=== PATIENT | male | born 1955 | race Caucasian/White ===

== ENCOUNTER 2018-11-27 16:09 | Inpatient (IN) | payer MEDICARE, MEDICAID ==
[2018-11-27] MEDS ORDERED: Haloperidol Lactate 5 mg/mL 1mL Vial IM STA (16:26)
[2018-11-27] MEDS ORDERED: Haloperidol Lactate 5 mg/mL 1mL Vial ONE (16:36)
--- NOTE | 2018-11-27 16:44 | ED Physician Chart ---
ED Chief Complaint/HPI - Patient Information Date Seen:: 11/27/18 Time Seen:: 16:38 Chief Complaint:: agitation History of Present Illness:: this is a 63 yo male senior care patient bib his brother for evaluation and treatment. he has been in the senior care for 10 yrs and had a previous episode of psychosis that he was treated for in the past. Allergies:: Allergies Allergy/AdvReac Type Severity Reaction Status Date / Time No Known Allergies Allergy Verified 11/27/18 16:20 Vitals:: Vital Signs - 8 hr 11/27/18 16:26 Temp 98.5 F HR 88 RR 18 BP 195/99 O2 Sat % 97 Historian:: Family Member (brother) Review:: Nurse's Note Reviewed ED Review of Systems - Review of Systems General/Constitutional: No fever, No chills, No weight loss, No weakness, No diaphoresis, No edema, No loss of appetite, Other (this patient is unable to give a review of systems) Skin: No skin lesions, No rash, No bruising Head: No headache, No light-headedness Eyes: No loss of vision, No pain, No diplopia ENT: No earache, No nasal drainage, No sore throat, No tinnitus Neck: No neck pain, No swelling, No thyromegaly, No stiffness, No mass noted Cardio Vascular: No chest pain, No palpitations, No PND, No orthopnea, No edema Pulmonary: No SOB, No cough, No sputum, No wheezing GI: No nausea, No vomiting, No diarrhea, No pain, No melena, No hematochezia, No constipation, No hematemesis G/U: No dysuria, No frequency, No hematuria Musculoskeletal: No bone or joint pain, No back pain, No muscle pain Endocrine: No polyuria, No polydipsia Psychiatric: No prior psych history, No depression, No anxiety, No suicidal ideation Hematopoietic: No bruising, No lymphadenopathy Allergic/Immuno: No urticaria, No angioedema Neurological: No syncope, No focal symptoms, No weakness, No paresthesia, No headache, No seizure, No dizziness, No confusion, No vertigo ED Past Medical History - Past Medical History Obtainable: Yes Past Medical History: HTN, Dyslipidemia, Dementia Family History: None Social History: Smoker, No Alcohol, No Drug Use, Care Facility Surgical History: None Psychiatricy History: Dementia Medication: Reviewed ED Physical Exam - Physical Examination General/Constitutional: Awake, Well-developed, well-nourished, Alert, No distress, GCS 15, Non-toxic appearing, Ambulatory Other Gen/Cons comments:: the patient is uncooperative and combative. Head: Atraumatic Eyes: Lids, conjuctiva normal, PERRL, EOMI Skin: Nl inspection, No rash, No skin lesions, No ecchymosis, Well hydrated, No lymphadenopathy ENMT: External ears, nose nl, Nasal exam nl, Lips, teeth, gums nl Neck: Nontender, Full ROM w/o pain, No JVD, No nuchal rigidity, No bruit, No mass, No stridor Respiratory: Nl effort/Exclusion, Clear to Auscultation, No Wheeze/Rhonchi/Rales Cardio Vascular: RRR, No murmur, gallop, rubs, NL S1 S2 GI: No tenderness/rebounding/guarding, No organomegaly, No hernia, Normal BS's, Nondistended, No mass/bruits, No McBurney tenderness : No CVA tenderness Extremities: No tenderness or effusion, Full ROM, normal strength in all extremities, No edema, Normal digits & nails Neuro/Psych: Alert/oriented, DTR's symmetric, Normal sensory exam, Normal motor strength, Judgement/insight normal, Mood normal, Normal gait, No focal deficits Misc: Normal back, No paraspinal tenderness ED Labs/Radiology/EKG Results - Radiology Results Results: chest x-ray = nad ct scan of the head = nad ED Assessment - Assessment General Assessment: psychosis ED Septic Shock - . Is Septic Shock (SBP<90, OR Lactate>4 mmol\L) present?: No - <6hrs of presentation: Vital Signs: Vital Signs - 8 hr 11/27/18 16:26 Temp 98.5 F HR 88 RR 18 BP 195/99 O2 Sat % 97 ED Reassessment (Disposition) - Diagnosis Diagnosis:: psychosis - Patient Disposition Discharge/Transfer:: Acute Care w/in this hosp Admitting Medical Physician:: Ben Rowe Admitting Psych Physician:: Trina Mercado Condition at Disposition:: Unchanged
[2018-11-27 18:24] LABS: % BASOPHILS 0.1 % (0.0-2.0); % EOSINOPHILS 0.3 % (0.0-5.0); % LYMPHOCYTES 8.2 % (20.0-50.0); % MONOCYTES 3.6 % (2.0-10.0); % NEUTROPHILS 87.8 % (40.0-80.0); HEMATOCRIT 45.5 % (41.0-60); HEMOGLOBIN 15.2 gm/dL (12-16); LYMPHOCYTE ABSOLUTE 0.7 Th/cmm (1.5-3.0); MEAN CELL VOLUME 87.5 fl (80-99); MEAN CORPUSCULAR HEMOGLOBIN 29.3 pg (26.0-30.0); MEAN CORPUSCULAR HGB CONC 33.5 pg (28.0-36.0); MEAN PLATELET VOLUME 9.2 fl; MONOCYTE ABSOLUTE 0.3 Th/cmm (0.3-1.0); NEUTROPHILE ABSOLUTE 7.8 Th/cmm (1.8-8.0); PLATELET COUNT 228 Th/cmm (150-400); WHITE BLOOD COUNT 8.8 Th/cmm (4.8-10.8)
[2018-11-27 18:34] LABS: INR 0.94 (0.5-1.4); PROTHROMBIN TIME (TEST) 9.8 SECONDS (9.5-11.5)
[2018-11-27 18:35] LABS: ALB/GLOB RATIO 1.6 (1.0-1.8); ALBUMIN 4.2 gm/dL (4.2-5.5); ALKALINE PHOSPHATASE 63 U/L (34-104); BILIRUBIN,TOTAL 1.3 mg/dL (0.3-1.0); BUN - UREA NITROGEN 15 mg/dL (7-25); CARBON DIOXIDE 27.4 mEq/L (21.0-31.0); CHLORIDE 104 mEq/L (98-107); CREATININE - SERUM 0.9 mg/dL (0.7-1.3); GFR AFRICAN-AMERICAN > 60.0 ml/min (>90); GFR NON AFRICAN-AMERICAN > 60.0 ml/min; GLUCOSE 157 mg/dL (70-105); POTASSIUM SERUM 3.4 mEq/L (3.5-5.1); SGOT 17 U/L (13-39); SGPT/ALT 10 U/L (7-52); SODIUM SERUM 141 mEq/L (136-145); TOTAL PROTEIN,SERUM 6.8 gm/dL (6.0-8.3)
[2018-11-27] MEDS ORDERED: Magnesium Hydroxide (MOM) 30 mL UDC PO PRN (21:28)
[2018-11-27] MEDS ORDERED: Maalox 30 mL Cup PO PRN (21:28)
[2018-11-27 21:52] LABS: CHOLESTEROL 159 mg/dL (<200); HDL -HIGH DENSITY LIPOPROTEIN 50 mg/dL (23-92); TRIGLYCERIDES 53 mg/dL (<150)
[2018-11-28 02:37] VITALS: BP 138/74
--- NOTE | 2018-11-28 09:27 | Diagnostic Imaging Report ---
CHEST X-RAY: AP view INDICATION: pain COMPARISON: None FINDINGS: Left basal subsegmental atelectasis versus scarring is noted. There is no focal consolidation or pleural effusions The heart is normal in size. Degenerative changes of the spine are noted. IMPRESSION: Left basal subsegmental atelectasis versus scarring. No focal consolidation is identified..
--- NOTE | 2018-11-28 09:36 | Diagnostic Imaging Report ---
Head CT without intravenous contrast Indication: Confusion Comparison: None Technique: Axial images were obtained from the vertex to the skull base without IV contrast. Coronal reconstructions were made. Total DLP: 789 , [id number] FINDINGS: Images of the brain obtained without contrast demonstrate no acute hemorrhage. No mass lesions identified. The ventricles and basal cisterns are patent. The peraza-white matter differentiation is preserved. There is no mass effect or midline shift. Without calcification is noted. Atherosclerosis is noted. No skull fractures identified. No soft tissue swelling. There is mucosal thickening in the paranasal sinuses. IMPRESSION: No acute intracranial abnormality. Atherosclerotic vascular disease.
[2018-11-28] MEDS: Multivitamin Tab PO SCH (10:02)
--- NOTE | 2018-11-28 15:19 | History & Physical ---
ADMIT DATE: 11/28/2018 PATIENT'S ID: A 63-year-old male. Requesting physician for the H and P is Dr. Mercado. CHIEF COMPLAINT: Unable to obtain from the patient. HISTORY SOURCE: Reviewing the chart, talking to the staff at [facility]. HISTORY OF PRESENT ILLNESS: A 63-year-old resident of assisted living facility in [facility], brought into the Emergency Room at [facility] for evaluation of increasing agitation. The patient was evaluated in the ER and subsequently advised to be admitted at [facility]. The patient was admitted by Dr. Mercado and I am evaluating this patient this morning. I am unable to get meaningful history from the patient due to his underlying illness. PAST MEDICAL HISTORY: Remarkable for: 1. Hypertension. 2. Hyperlipidemia. 3. DJD. 4. Psychotic disorder. 5. History of dementia. MEDICATIONS: The patient is receiving, which include: 1. Lisinopril. 2. Amlodipine. 3. Aspirin. 4. Lorazepam. 5. Paliperidone. 6. Simvastatin. 7. Haldol. ALLERGIES: The patient is not allergic to medications. SOCIAL HISTORY: He lives in assisted living facility. The patient has a history of smoking cigarette, but no alcohol or drug use. FAMILY MEDICAL HISTORY: Remarkable for hypertension and stroke. REVIEW OF SYSTEMS: The patient's history is pretty unreliable due to the patient's current condition. PHYSICAL EXAMINATION: GENERAL: The patient is alert, awake, lying in the bed, ambulatory. VITAL SIGNS: Temperature 98.5, pulse is 88, respiratory rate 18, blood pressure 195/99. HEENT: Normocephalic, atraumatic. Extraocular muscles are intact. Tongue was pink and coated. Poor dentition noted. No oral lesion, no exudate. No sinus tenderness. NECK: Supple, no JVD, no hepatojugular reflex. No lymphadenopathy, thyromegaly, or carotid bruit. HEART: Both heart sounds are regular. No S3, no S4, no murmur. CHEST AND LUNGS: Equal in expansion, no expiratory wheezing. ABDOMEN: Soft. No guarding, no rigidity. Liver and spleen are not palpable. No palpable belia. EXTREMITIES: No edema, no cyanosis. Peripheral pulses +1. No calf tenderness noted. NEUROLOGIC: Alert and awake, follows simple 1-step command, moving upper and lower extremity without any difficulty. Some degree of spasticity noted. AVAILABLE DIAGNOSTIC DATA: Chest x-ray performed in the Emergency Room, which remarkable for cardiomegaly, but no infiltrate, no congestion. CT scan of the head was done, which was unremarkable for any bleed. The patient's white count of 8.8, hemoglobin of 15.2, platelet count 228. Sodium 141, potassium 3.4, chloride 104, CO2 27.4, BUN and creatinine are 15 and 0.9, glucose of 157. Total bilirubin is 1.3. TSH is 1.5. Cholesterol profile within normal limit. EKG unremarkable for any acute ischemia or arrhythmias. CLINICAL IMPRESSIONS: 1. Hypertension. 2. Hyperlipidemia. 3. Degenerative joint disease. 4. Psychotic disorder. 5. Dementia. 6. High risk for fall. PLAN: 1. Psychotic evaluation and management deferred to psychiatrist. 2. Resume antihypertensive medication. 3. Monitor blood pressure. 4. Resume statin. 5. Fall precautions. 6. General nursing care. 7. Nutritional support. 8. Symptoms management. 9. Medication management. 10. We will continue to follow this patient during the stay in the hospital. JOB# [id number]
[2018-11-28] MEDS ORDERED: PALIPERIDONE 9 MG PO SCH (21:00)
--- NOTE | 2018-11-29 02:53 | Psychiatric Evaluation ---
DATE OF SERVICE: 11/27/2018 IDENTIFYING DATA: The patient is a 63-year-old male living with his family. Information obtained by directly interviewing the patient as well as reviewing the admission paper. JUSTIFICATION OF HOSPITALIZATION: The patient is admitted here for acute psychosis. The patient is conserved. The patient is reported to have been noncompliant to the medication almost for a month and half and the patient is not making much sense at this time. Sleep and appetite at the time of the hospitalization are reported to be very poor. The patient is very disheveled and not making much sense. The patient's brother is worried about the patient not compliant with the medication and wants the patient to be hospitalized for stabilization. PAST PSYCHIATRIC HISTORY: The patient had been hospitalized on multiple occasions. MEDICAL HISTORY: Physical examination is requested to be done by Dr. Rowe. SUBSTANCE ABUSE HISTORY: None. PHYSICAL OR SEXUAL ABUSE HISTORY: None. LEGAL PROBLEMS: None at this time. STRENGTH AND ASSETS: The patient is motivated. MENTAL STATUS EXAMINATION: The patient is a 63-year-old, looking his stated age, disheveled, superficially cooperative. Eye contact is poor. Mood is noted to be irritable. Affect is constricted. The patient is pacing on the unit. The patient has paranoid delusions, but denies any command hallucinations. The patient is not able to contract for safety. No side effects to the medications are noted at this time. The patient has been pacing on the unit. The patient is alert and awake. Attention span and concentration are noted to be poor at this time. ASSESSMENT: Schizophrenia. DIAGNOSTIC ASSESSMENT: AXIS I: Schizophrenia, chronic paranoid type. AXIS II: None. AXIS III: As per Dr. Rowe. IMMEDIATE TREATMENT PLAN: The patient is going to be restarted on the Haldol and if the patient is able to tolerate, he is going to be given the Haldol Decanoate. JOB# [id number]
[2018-11-29] MEDS: Multivitamin Tab PO SCH (09:02)
--- NOTE | 2018-11-29 22:57 | Consultation ---
DATE OF CONSULTATION: 11/29/2018 REFERRING PHYSICIAN: Trina Mercado M.D. TYPE OF CONSULTATION: Psychology. HISTORY OF PRESENT ILLNESS: The patient is a 63-year-old male. The following is by review of the medical record and by patient's self-report. According to record, the patient lives with his family and is being admitted here due to acute psychosis. The patient is conserved. The record indicates the patient has been noncompliant with his medication for approximately 6 weeks. The patient is not making much sense at the time of this clinical interview. The patient's brother is involved with his care. The patient denied any suicidal ideation, plan, or intention at the time of this clinical interview. PAST MEDICAL HISTORY: Please see history and physical by Dr. Rowe. PAST PSYCHIATRIC HISTORY: The patient has multiple previous hospitalizations according to the review of the record. It is unknown whether the patient is under the care of a psychiatrist or a psychologist. SUBSTANCE ABUSE HISTORY: The patient did not answer these questions. PSYCHOSOCIAL HISTORY: The patient lives with his family. The patient did not answer questions about occupational or educational history or sabianist affiliation. The patient denied any history of physical or sexual abuse. He denies any current legal problems. The patient expects to return to his previous placement, which according to the record is living with his family. This will be reviewed by the telephonic nurse case manager and the attending psychiatrist. MENTAL STATUS EXAMINATION: The patient appears to be his stated age. The patient's attitude is superficially cooperative. The patient looks disheveled. Eye contact is poor. Speech is rambling. Mood is irritable. Affect is constricted. The patient is pacing on the unit. The patient denied any suicidal ideation, plan, or intention. The patient denies any auditory or visual hallucinations; however , the patient is verbalizing paranoid delusions and is unable to contract for safety. Impulse control is poor. Concentration is poor. The patient did not participate in the memory assessment. The patient did not participate in the interpretation of proverbs. Sensorium is alert and oriented to self only. Insight is impaired. Judgment is impaired. DIAGNOSTIC IMPRESSION: AXIS I: Schizophrenia, chronic, paranoid type. AXIS II: Deferred. AXIS III: Per Dr. Mckee. PLAN: The patient has been seen by Dr. Mercado for psychiatric evaluation and for the management of the patient's psychotropic medications. The attending psychiatrist reports that the patient is restarted on Haldol Decanoate. We will provide supportive psychotherapy to include reality orientation, differentiation, and integration. We will provide motivational enhancement for the patient to become compliant and to stay compliant with all aspects of his care and treatment. We will provide coping strategies for phase of life issues as well as for chronic severe mental illness. We will encourage the patient to be able to demonstrate emotional and self-regulation prior to his discharge. We will encourage the patient to verbally contract for safety. The telephonic nurse case manager is involved in the patient's possible placement versus returning home to his family. This will be discussed with the attending psychiatrist. Thank you, Dr. Mercado, for this consult and the opportunity to participate in this patient's care. JOB# [id number] MTDKim
--- NOTE | 2018-11-30 03:08 | Progress Notes ---
DATE: 11/29/2018 PSYCHIATRIC PROGRESS NOTE SUBJECTIVE: Staff was spoken to. The patient is interviewed. Mood is noted to be irritable. Affect is constricted. Coping skills are noted to be very poor. The patient is going on a tangent. The patient continues to be very paranoid. Insight and judgment are noted to be very much impaired. The patient is pacing most of the time on the unit. ASSESSMENT: The patient is still grossly psychotic. PLAN: To continue the patient with supportive therapy. I encouraged the patient to verbalize the concerns rather than to act out. JOB# [id number]
--- NOTE | 2018-11-30 04:47 | Progress Notes ---
DATE: IDENTIFICATION: A 63-year-old male. SUBJECTIVE: The patient seen and examined. The patient is lying in the bed. The patient was able to participate in the activity. The patient also had a shower this morning as well. PHYSICAL EXAMINATION: VITAL SIGNS: On today's exam, temperature 98.6, pulse 73, respiratory rate 18, blood pressure 134/92. HEENT: No facial asymmetry. NECK: Supple, no JVD. HEART: Regular. CHEST AND LUNGS: Equal in expansion, no expiratory wheezing. ABDOMEN: Soft. EXTREMITIES: No edema. CLINICAL IMPRESSION: 1. Hypertension. 2. Psychotic disorder exacerbation. 3. Hyperlipidemia. 4. Degenerative joint disease. 5. Psychotic disorder 6. Dementia. PLAN: 1. Monitor blood pressure. 2. Antihypertensive medicine. 3. Statin. 4. Psych followup. 5. General nursing care. 6. Nutritional support. 7. Follow lab. 8. Care plan reviewed. JOB# [id number]
[2018-11-30] MEDS: Multivitamin Tab PO SCH (08:25)
--- NOTE | 2018-12-01 04:01 | Progress Notes ---
DATE: 11/30/2018 PSYCHIATRIC PROGRESS NOTE SUBJECTIVE: Staff was spoken to. The patient is interviewed. Mood is noted to be less irritable. Affect is appropriate. The patient has been, however, pacing most of the time on the unit and is actively responding to internal stimuli. The patient is currently on Haldol. Plan is to contact the conservator and if the conservator is okay, the patient is going to be given the Haldol Decanoate. ASSESSMENT: The patient is still psychotic. PLAN: To continue the patient with the supportive therapy and followup. JOB# [id number]
[2018-12-01] MEDS: Multivitamin Tab PO SCH (08:51)
--- NOTE | 2018-12-01 15:27 | Progress Notes ---
DATE: 11/30/2018 IDENTIFICATION: A 63-year-old male patient seen and examined. The patient is lying in the bed. No new event. PHYSICAL EXAMINATION: VITAL SIGNS: See nurse's note. HEENT: Poor dentition. NECK: Supple, no JVD. HEART: Regular. CHEST: Lung equal in expansion, no expiratory wheezing. ABDOMEN: Soft. EXTREMITIES: No edema. NEUROLOGIC: Limited, but nonfocal. CLINICAL IMPRESSION: 1. Hypertension. 2. Psychotic disorder. 3. Degenerative joint disease. 4. Hyperlipidemia. 5. High risk for fall. 6. Dementia. PLAN: 1. Low sodium diet. 2. Statins. 3. Antihypertensive medicine. 4. Psych medication. 5. Psych followup. 6. General nursing care. 7. Nutritional support. 8. Follow lab. 9. Follow consult recommendation. 10. Care plan reviewed and discussed with staff. JOB# [id number]
--- NOTE | 2018-12-02 02:32 | Progress Notes ---
DATE: 12/01/2018 SUBJECTIVE: Staff was spoken to. The patient is interviewed. Mood is noted to be irritable. Affect is constricted. The patient has been mumbling to self. The patient is not able to contract for safety. There is no Invega available in the hospital, hence the patient is immediately placed on the previous medications that is Risperdal 2 mg twice a day. The patient's insight and judgment are noted to be still impaired. Impulse control is noted to be limited. ASSESSMENT: The patient is still psychotic and impulsive. PLAN: To continue the patient with the supportive therapy and followup. JOB# [id number]
--- NOTE | 2018-12-02 06:12 | Progress Notes ---
DATE: 12/01/2018 PSYCHOLOGY PROGRESS NOTE SUBJECTIVE: The patient is seen and interviewed. Case is discussed with staff. The patient presents as less irritable, but somewhat withdrawn. Affect is mood congruent. The staff indicates the patient has been pacing on and off during the day on the unit. It appears the patient continues to respond to internal stimuli. The patient is mumbling to himself most of the time, but is able to respond yes or no to the clinical questions. OBJECTIVE: Mood is less irritable. Affect is appropriate. Thought process shows to be confused and responding to inner dialogue persists. The patient denied any suicidal ideation, plan or intention. The patient's behavior is difficult at times to redirect. ASSESSMENT: The patient remains to be psychotic. We will continue to provide reality orientation, differentiation and integration to assist the patient to focus on reality based thoughts versus delusional thought, i.e., internal stimuli. PLAN: We will continue to provide re-motivation for the patient to stay compliant with all aspects of his care and treatment. We will provide coping strategies for chronic severe mental illness. We will follow up in 2-3 days to continue the present treatment if the patient remains on the unit. [facility]# [id number] CORBY
[2018-12-02] MEDS: Multivitamin Tab PO SCH (09:32)
--- NOTE | 2018-12-03 02:23 | Progress Notes ---
DATE: 12/02/2018 SUBJECTIVE: Staff was spoken to. The patient is interviewed. Mood is noted to be irritable. Affect is constricted. The patient is pacing most of the time. Insight and judgment at this time are noted to be very much impaired. Impulse control is noted to be limited. The patient has been making no sense at this time. The patient is currently on haloperidol, has been getting 5 mg twice a day and in view of the patient's poor compliance with the medication, it is decided to start the patient on Haldol Decanoate, which is going to be given at 50 mg and the patient is going to be closely monitored with this medication and followed up with the supportive therapy. The patient at this time is not able to contract for safety and the patient is going to be given the Haldol Decanoate 50 mg tomorrow and the conservator is going to be contacted and once the conservator gives the permission, the patient is going to be continued with this medication. JOB# [id number]
--- NOTE | 2018-12-03 04:09 | Progress Notes ---
DATE: 12/02/2018 PATIENT'S ID: A 63-year-old male. SUBJECTIVE: The patient was seen and examined. The patient is lying in the bed, unable to get meaningful history today from the patient. Discussed with nursing staff about their concerns and treatment plan. PHYSICAL EXAMINATION: VITAL SIGNS: Temperature 98, pulse is 76, respiratory rate 18. HEENT: No facial asymmetry. Poor dentition noted. No oral lesion noted. No exudate. NECK: Supple. No JVD. No lymphadenopathy, thyromegaly. HEART: Both heart sounds are regular. CHEST AND LUNGS: Equal in expansion with no expiratory wheezing. ABDOMEN: Soft. No guarding, no rigidity. Bowel sounds present. No palpable mass. EXTREMITIES: No edema. Medication admission record is reviewed. CLINICAL IMPRESSION: 1. Hypertension. 2. Psychotic disorder. 3. Degenerative joint disease. 4. Dementia. 5. Hyperlipidemia. 6. High risk for fall. PLAN: 1. Low sodium diet. 2. Psych medication. 3. Psych followup. 4. Statin. 5. Fall precaution. 6. General nursing care. 7. Nutritional support. 8. Symptoms management. 9. Care plan reviewed and discussed with staff. JOB# [id number]
[2018-12-03] MEDS: Multivitamin Tab PO SCH (09:06)
[2018-12-04] MEDS: Multivitamin Tab PO SCH (08:23)
--- NOTE | 2018-12-04 09:45 | Progress Notes ---
DATE: 12/03/2018 SUBJECTIVE: Staff was spoken to. The patient is interviewed. Mood is noted to be irritable. Affect is constricted. Insight and judgment noted to be still impaired. Impulse control is noted to be limited. The patient has been not making much sense. Coping skills are noted to be extremely poor at this time. The patient is pacing most of the time. The patient is pacing on the unit. The patient continues to be mumbling to self and not making much sense. In view of the impulsivity, I have decided to start the patient on low dose of Depakote, which is going to be given at 250 mg twice a day and the patient is going to be followed up with supportive therapy. ASSESSMENT: The patient is still psychotic and impulsive, and has been making nonsensical statements and trying to run towards the exit doors. In view of the impulsivity, the above changes have been made. PLAN: The patient is going to be followed up with the supportive therapy. The patient's Risperdal is going to be discontinued. JOB# [id number]
--- NOTE | 2018-12-04 14:22 | Progress Notes ---
DATE: 12/04/2018 SUBJECTIVE: Staff was spoken to. The patient is interviewed. Mood is noted to be irritable. Affect is constricted. The patient has been pacing on the unit. Insight and judgment at this time are noted to be still impaired. Impulse control is noted to be limited. Coping skills are noted to be limited. The patient has been responding to internal stimuli. The patient is currently on Haldol and has been able to tolerate the medication. PLAN: To continue the patient with the supportive therapy, encouraged the patient to verbalize the concerns rather than to act out. JOB# [id number]
[2018-12-05] MEDS: Multivitamin Tab PO SCH (09:08)
--- NOTE | 2018-12-05 23:12 | Progress Notes ---
DATE: 12/05/2018 SUBJECTIVE: Staff was spoken to. The patient is interviewed. Mood is noted to be irritable. Affect is constricted. Coping skills are noted to be still poor. The patient has paranoid delusions and pacing most of the time on the unit. No side effects to the medications are noted at this time. ASSESSMENT: The patient is still impulsive. PLAN: To continue the patient with the supportive therapy. I encouraged the patient to verbalize the concerns rather than to act out. JOB# [id number]
[2018-12-06] MEDS: Multivitamin Tab PO SCH (08:55)
--- NOTE | 2018-12-06 21:05 | Progress Notes ---
DATE: 12/06/2018 PSYCHOLOGY PROGRESS NOTE SUBJECTIVE: The patient is seen and interviewed. Case is discussed with staff. The patient presents as irritable. The patient is still having difficulty following through with staff direction as well as compliance with his care. The patient is verbalizing paranoid delusions. Staff reports the patient continues to pace most of the time on the unit. OBJECTIVE: Mood is irritable. Affect is constricted. Thought process shows to be confused as well as having perseveration towards his medical condition and the staff. The patient continues to be restless. ASSESSMENT AND PLAN: The patient continues to be impulsive. The patient continues to have poor reality testing. We provided supportive psychotherapy which included reality orientation, differentiation, and integration. We provided remotivation for the patient to become compliant and stay compliant with all aspects of his care and treatment as well as to encourage the patient to follow through with staff direction. We provided limit setting and de-escalation. We provided coping strategies for phase of life issues as well as for chronic severe mental illness. We encouraged the patient to demonstrate emotional and self-regulation and verbalize his concerns versus acting out. We will continue to follow up in 2-3 days to continue present treatment. JOB# [id number] [facility]
--- NOTE | 2018-12-06 22:44 | Progress Notes ---
DATE: 12/06/2018 SUBJECTIVE: The patient is seen and examined. The patient was lying in the bed. The patient denies any complaint. Discussed with nursing staff about their concern as well as the treatment plan. PHYSICAL EXAMINATION: VITAL SIGNS: Temperature is 97.6, pulse is 64, respiratory rate is 18, blood pressure is 136/70. HEENT: Poor dentition. No facial asymmetry. NECK: Supple. No JVD. No lymphadenopathy or thyromegaly. HEART: Regular. CHEST: Lung equal in expansion, no expiratory wheezing. ABDOMEN: Soft. No guarding, no rigidity. Bowel sounds are present. No palpable mass. EXTREMITIES: No edema, no cyanosis. Medication admission records were reviewed. CLINICAL IMPRESSION: 1. Psychotic disorder exacerbation. 2. Hypertension. 3. Hyperlipidemia. 4. Dementia, most likely Alzheimer's type. 5. Degenerative joint disease. 6. High risk for fall. 7. Needs for ADL. PLAN: 1. Low sodium diet. 2. Psych medication. 3. Psych followup. 4. Statins. 5. General nursing care. 6. Nutritional support. 7. Fall precaution. 8. Medication management. 9. Symptoms management. 10. General nursing care. 11. Care plan reviewed and discussed with staff. JOB# [id number]
--- NOTE | 2018-12-07 00:31 | Progress Notes ---
DATE: 12/06/2018 SUBJECTIVE: Staff was spoken to. The patient is interviewed. Mood is noted to be irritable. Affect is constricted. The patient is going on a tangent. Insight and judgment are noted to be still impaired. Impulse control is noted to be limited. No side effects to the medications are noted. The patient is able to tolerate the medication so far. ASSESSMENT: The patient is still responding to internal stimuli. PLAN: To continue the patient with the current medications and follow. JOB# [id number]
[2018-12-07] MEDS: Multivitamin Tab PO SCH (09:19)
--- NOTE | 2018-12-08 03:28 | Progress Notes ---
DATE: 12/07/2018 SUBJECTIVE: Staff was spoken to. The patient is interviewed. Mood is noted to be irritable. Affect is constricted. Insight and judgment noted to be improving. Impulse control seems to be fair. The patient could be redirectable. The patient, however, has been responding to internal stimuli. No side effects to the medications are noted. The patient's brother has been spoken to in detail. ASSESSMENT AND PLAN: The patient is scheduled to have an interview for the placement and if the placement is available, possibly the patient is going to be discharged tomorrow. JOB# [id number]
[2018-12-08] MEDS: Multivitamin Tab PO SCH (10:00)
--- NOTE | 2018-12-08 13:31 | Progress Notes ---
DATE: 12/08/2018 SUBJECTIVE: Staff was spoken to. The patient is interviewed. Mood is noted to be irritable. Affect is constricted. The patient's insight and judgment are noted to be improving. Impulse control seems to be fair. The patient has paranoia, but denies any current hallucinations today. No major behavioral problems are noted. The patient could be redirected. ASSESSMENT: The patient's psychosis is resolving. The patient is going to be discharged today once the placement is in place. JOB# [id number]
--- NOTE | 2018-12-10 00:11 | Progress Notes ---
DATE: 12/08/2018 PSYCHOLOGY PROGRESS NOTE SUBJECTIVE: The patient is seen and interviewed. Case has been discussed with staff. The patient's mood is mildly irritable. The patient presents as confused. However, the patient's impulse control seems to be improving. The staff indicates the patient has become compliant with staff direction as well as with his care and treatment. No major behavioral problems are noted. OBJECTIVE: Mood is mildly irritable. Affect is constricted. Thought process is confused with loose associations. The patient denied any auditory or visual hallucinations. The patient denies any suicidal ideation, plan, or intention. The patient's impulse control is improving and is more redirectable. ASSESSMENT AND PLAN: It should be noted that the patient's psychosis is resolving towards baseline. The patient may be discharging today. Therefore, there is no indication for followup visits. We provided coping strategies for chronic severe mental illness. We provided positive reinforcement and remotivation for the patient to stay compliant with all aspects of his care and treatment and to follow through with staff direction at his placement. We also provided coping strategies for phase of life issues. Thank you, Dr. Mercado, for this consult and the opportunity to participate in this patient's care. JOB# [id number] [facility]
== END 2018-12-08 16:30 | DRG 885 ==
LOC: ER 16:09 → GERO 18:00
PROVIDERS: ADMIT Psychiatry & Neurology Psychiatry; ATTEND Psychiatry & Neurology Psychiatry
DX: F20.0 Paranoid schizophrenia (principal); I10 Essential (primary) hypertension; E78.5 Hyperlipidemia, unspecified; M19.90 Unspecified osteoarthritis, unspecified site; F03.90 Unspecified dementia, unspecified severity, without behavioral disturbance, psychotic disturbance, mood disturbance, and anxiety; F17.210 Nicotine dependence, cigarettes, uncomplicated; Z91.81 History of falling
CPT/HCPCS: 36415-UA; 70450-TC; 71045-TC; 80053-TC; 80061-TC; 83036-90; 84443-TC; 84484-TC; 85025-TC; 85610-TC; 96374; G0410; J1630; J2060; Z7610